=== PATIENT | female | born 1965 | race Two or more races ===

== ENCOUNTER 2022-11-19 13:01 | Emergency (ER) | payer OTHER ==
[~2022-11-19] VITALS: Ht 165.1 cm; Wt 119.3 kg
[~2022-11-19 13:01] MED LIST: ORPH100T PO; SYNTHROID50 MCG
[2022-11-19] MEDS ORDERED: GRALISE600 MG (13:11)
[2022-11-19] MEDS ORDERED: DIURETICO (13:12)
[2022-11-19] MEDS ORDERED: COZAAR50 MG PO (13:12)
[2022-11-19] MEDS ORDERED: TOPROL XL25 M1 (13:12)
[2022-11-19] MEDS ORDERED: GLUMETZA500 MG (13:12)
== END 2022-11-19 20:12 | disposition home or self-care (01) ==
LOC: ER 13:01
DX: E11.9 Type 2 diabetes mellitus without complications (principal); Z79.84 Long term (current) use of oral hypoglycemic drugs; I10 Essential (primary) hypertension; Z88.6 Allergy status to analgesic agent